=== PATIENT | female | born 1960 | race Caucasian/White ===

== ENCOUNTER 2019-09-22 10:12 | Outpatient (CLI) | payer OTHER, SELFPAY ==
[2019-09-22 10:23] LABS: Basophils Absolute Auto 0.06 K/mm3 (0.00-0.10); Basophils Percent Auto 1.1 % (0.0-1.0); Eosinophils Absolute Auto 0.33 K/mm3 (0.02-0.50); Eosinophils Percent Auto 6.1 % (1.0-6.0); Hematocrit 39.5 % (35.0-49.0); Hemoglobin 13.3 g/dL (12.0-15.0); Immature Granulocyte Absolute 0.01 K/mm3 (0.00-0.00); Immature Granulocyte Percent A 0.2 % (0.0-0.0); Lymphocytes Absolute Auto 1.69 K/mm3 (1.10-4.50); Lymphocytes Percent Auto 31.2 % (18.0-42.0); Mean Corpuscular HGB Conc 33.7 g/dL (32.0-36.0); Mean Platelet Volume 9.6 fl (9.2-11.8); Monocytes Absolute Auto 0.46 K/mm3 (0.10-0.90); Monocytes Percent Auto 8.5 % (2.0-11.0); Neutrophils Absolute Auto 2.9 K/mm3 (1.7-7.2); Neutrophils Percent Auto 52.9 % (50.0-70.0); Platelet Count Result 257 K/mm3 (150-420); Red Blood Count 4.44 M/mm3 (4.20-5.40); Red Cell Distribution Width 13.1 % (11.6-14.4); White Blood Count 5.4 K/mm3 (4.8-10.8)
[2019-09-22 11:21] LABS: Alanine Aminotransferase 22 U/L (14-59); Albumin Level 4.5 g/dL (3.4-5.0); Alkaline Phosphatase 57 U/L (46-116); Anion Gap 16.5 mmol/L (7-16); Aspartate Amino Transferase 17 U/L (15-37); Bilirubin,Total 0.4 mg/dL (0.00-1.00); Blood Urea Nitrogen 19 mg/dL (7-18); Calcium 9.1 mg/dL (8.5-10.1); Carbon Dioxide 26 mmol/L (21-32); Chloride 106 mmol/L (98-108); Cholesterol 245 mg/dL (0-200); Estimated Glomerular Filt Rate > 60; Glucose 96 mg/dL (70-99); HDL Direct 51 mg/dL (40-60); LDL Cholesterol Calculated 169 mg/dL (<130); Osmolality Calculated 300 mOsm/kg (285-295); Potassium 4.5 mmol/L (3.5-5.1); Sodium 144 mmol/L (136-145); Thyroid Stimulating Hormone Reflex 5.16 u/IU/mL (0.36-3.74); Total Protein 7.4 g/dL (6.4-8.2); Triglycerides 126 mg/dL (0-150)
[2019-09-22 11:39] LABS: Free T4 Free Thyroxine Reflex 0.76 ng/dL (0.76-1.46)
== END 2019-09-22 10:13 | disposition home or self-care (01) ==
LOC: CHSLAB 10:15
PROVIDERS: PCP Family Medicine; Visit Provider Family Medicine
DX: E03.9 Hypothyroidism, unspecified (principal); E78.5 Hyperlipidemia, unspecified
CPT/HCPCS: 36415; 80053; 80061; 84439; 84443; 85025

== ENCOUNTER 2020-02-09 10:18 | Outpatient (CLI) | payer OTHER, SELFPAY ==
[2020-02-09 11:48] LABS: Thyroid Stimulating Hormone Reflex 2.95 u/IU/mL (0.36-3.74)
[2020-02-11 11:18] LABS: Cholesterol 192 mg/dL (0-200); HDL Direct 53 mg/dL (40-60); LDL Cholesterol Calculated 123 mg/dL (<130); Triglycerides 79 mg/dL (0-150)
[2020-02-15 04:12] LABS: Hepatitis C Virus Antibody Nonreactive (Nonreactive)
== END 2020-02-09 10:19 | disposition home or self-care (01) ==
LOC: CHSLAB 10:23
PROVIDERS: PCP Family Medicine; Visit Provider Family Medicine
DX: E03.9 Hypothyroidism, unspecified (principal)
CPT/HCPCS: 36415; 80061; 84443

== ENCOUNTER 2020-05-05 15:11 | Outpatient (CLI) | payer OTHER, SELFPAY ==
--- NOTE | ~2020-05-05 | XR_ITS ---
EXAMINATION: XR chest 2V EXAM DATE: 05/05/2020 15:34 INDICATION: Short of breath on exertion. TECHNIQUE: Frontal and lateral projections of the chest obtained and reviewed. Comparison is made to prior examination from 06/27/2018. FINDINGS: There is right lower lobe granuloma. The lungs are otherwise clear. There are no pleural e ffusions. The cardiomediastinal silhouette is within normal limits. There is no pneumothorax suspec jamia. The bones and soft tissues are unremarkable. IMPRESSION: No acute cardiopulmonary findings. Reviewed, dictated and finalized at location A.
[2020-05-05 15:21] LABS: Hematocrit 39.1 % (35.0-49.0); Hemoglobin 12.9 g/dL (12.0-15.0); Mean Corpuscular Hemoglobin 30.3 pg (27.0-31.0); Mean Corpuscular Volume 91.8 fL (78.0-102.0); Mean Platelet Volume 9.7 fl (9.2-11.8); Platelet Count Result 281 K/mm3 (150-420); Red Blood Count 4.26 M/mm3 (4.20-5.40); Red Cell Distribution Width 12.8 % (11.6-14.4); White Blood Count 6.6 K/mm3 (4.8-10.8)
[2020-05-05 16:02] LABS: Alanine Aminotransferase 28 U/L (14-59); Albumin Level 4.5 g/dL (3.4-5.0); Alkaline Phosphatase 75 U/L (46-116); Anion Gap 9 mmol/L (8-16); Aspartate Amino Transferase 19 U/L (15-37); Bilirubin,Total 0.5 mg/dL (0.00-1.00); Blood Urea Nitrogen 19 mg/dL (7-18); Calcium 9.2 mg/dL (8.5-10.1); Carbon Dioxide 26 mmol/L (21-32); Chloride 106 mmol/L (98-108); Estimated Glomerular Filt Rate > 60; Glucose 91 mg/dL (70-99); Osmolality Calculated 294 mOsm/kg (285-295); Potassium 4.1 mmol/L (3.5-5.1); Sodium 141 mmol/L (136-145); Total Protein 7.3 g/dL (6.4-8.2)
== END 2020-05-05 15:12 | disposition home or self-care (01) ==
LOC: CHSLAB 15:14
PROVIDERS: PCP Family Medicine; Visit Provider Family Medicine
DX: R68.89 Other general symptoms and signs (principal)
CPT/HCPCS: 36415; 71046; 80053; 85027

== ENCOUNTER 2020-05-07 20:31 | Emergency (ER) | payer OTHER, SELFPAY ==
[2020-05-07 20:35] VITALS: BP 141/81; PULSE 61; RESP 17; TEMP 37; O2SAT 99
[2020-05-07 20:40] VITALS: PULSE 62
--- NOTE | 2020-05-07 21:02 | ECG_ITS ---
Measurements Intervals [place] Rate: 54 P: 18 DC: 189 QRS: 0 QRSD: 103 T: 33 QT: 419 QTc: 399 Interpretive Statements SINUS BRADYCARDIA BORDERLINE ECG Electronically Signed On 05-08-2020 7:07:58 CDT by Angel Riojas D.O.
--- NOTE | 2020-05-07 21:02 | ED.GENADULT ---
HPI - General Adult General Chief complaint: Shortness of Breath/Dyspnea Stated complaint: SOB Source: patient Mode of arrival: ambulatory Limitations: no limitations History of Present Illness HPI narrative: Tonie is a 60F with a PMH of hypothyroidism, HTN, HLD and some exercise intolerance presented to the ER with concerns of her heart pounding, and SOB with activity. She intermittently feels like her heart is pounding, she is anxious and she cannot control it. 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 She also reports some lightheadedness. No chest pain, N/V or syncope. Of note she was recently seen in clinic for this and she went to [facility] emergency department last night. She had an EKG that was normal but was not able to stay long enough to be seen by a physician. Related Data Home Medications Medication Instructions Recorded Confirmed aspirin 81 mg tablet,delayed 81 mg PO DAILY 09/06/19 05/07/20 release Allergies Allergy/AdvReac Type Severity Reaction Status Date / Time Sulfa (Sulfonamide Allergy Rash Verified 05/07/20 20:53 Antibiotics) Review of Systems Constitutional: Constitutional: Denies chills, Denies fever(s) and Denies weakness Eyes: Eyes: Reports no additional eye complaints ENT: Reports system reviewed and no additional complaints, except as documented Cardiovascular: Cardiovascular: Reports as per HPI Respiratory: Respiratory: Reports as per HPI Gastrointestinal: Comments: belching Genitourinary: Genitourinary: Reports no additional female genitourinary complaints Musculoskeletal: Musculoskeletal: Reports no additional musculoskeletal complaints Integumentary/Breasts: Skin/Breast: Reports system reviewed and no additional complaints, except as docu Neurologic: Reports system reviewed and no additional complaints, except as documented Psychiatric: Psychiatric: Reports anxiety Endocrine: Endocrine: Reports no additional endocrine complaints Hematologic/Lymphatic: Hematologic/Lymphatic: Reports no additional hematologic/lymphatic complaints Allergic/Immunologic: Allergic/Immunologic: Reports no additional allergic/immunologic complaints [facility] Past Medical History Medical History Exercise intolerance Hyperlipidemia Hypertension Hypothyroidism Surgical History Surgical History H/O exploratory laparotomy H/O lithotripsy Hx of cardiac cath Social History Social History Smoking status: Never smoker Alcohol intake: never Substance use: never Substance use type: does not use Additional occupation/education comments: RN at [employer] Exam Const: General: no acute distress and alert Orientation/consciousness: patient oriented x3 Limitations: No altered mental status HENMT: Head: normal to inspection Eyes: Conjunctivae: conjunctivae normal Pupils: Equal, round and reactive pupils present Neck: Neck: normal visual inspection Chest: Chest palpation & inspection: normal inspection of the chest Resp: Effort & Inspection: normal respiratory effort, not labored, not tachypneic and no use of accessory muscles Auscultation: clear to auscultation bilaterally Cardio: Rate: regular rate Rhythm: regular rhythm Heart sounds: no murmurs GI: GI Palp: Yes Soft to palpation, No Tenderness to palpation present (GI) and No Guarding due to palpation present (GI) Skin: General skin exam: normal color Rashes: no rashes Neuro: General: patient oriented x3 and moves all extremities Extrem: General: normal to inspection Psych: Mental Status: mental status grossly normal Course Course Emergency Course: Tonie was evaluated. An EKG was ordered as well as a dose of ativan. Of note she was seen in clinic on 05/05 and had a normal CXR,
[2020-05-07] MEDS: LORazepam INJ (*CRX) 2 MG/ML VIAL 1 MG IM (21:07)
[2020-05-07 22:05] VITALS: BP 146/79; PULSE 61; RESP 14; O2SAT 100
== END 2020-05-07 22:10 | disposition home or self-care (01) ==
PROVIDERS: Emergency Provider Family Medicine; PCP Family Medicine
DX: F41.9 Anxiety disorder, unspecified (principal)
CPT/HCPCS: 93005; 96372; 99283; J2060

== ENCOUNTER 2020-08-16 11:38 | Outpatient (CLI) | payer OTHER, SELFPAY ==
[2020-08-16 12:41] LABS: Free T4 Free Thyroxine 0.91 ng/dL (0.76-1.46); Thyroid Stimulating Hormone 3.46 uIU/mL (0.36-3.74)
== END 2020-08-16 11:39 | disposition home or self-care (01) ==
LOC: CHSLAB 11:40
PROVIDERS: PCP Family Medicine; Visit Provider Family Medicine
DX: E03.9 Hypothyroidism, unspecified (principal)
CPT/HCPCS: 36415; 84439; 84443

== ENCOUNTER → 2020-08-26 09:15 | Outpatient (CLI) | payer OTHER, SELFPAY ==
--- NOTE | ~2020-08-26 | US_ITS ---
EXAMINATION: US transvaginal EXAM DATE: 08/26/2020 09:44 INDICATION: hx of complex hyperplasia, check endometrial stripe. TECHNIQUE: Pelvic transvaginal sonogram was performed. There are multiple grayscale and Doppler imag es available for interpretation. There is no prior study for comparison. FINDINGS: Uterus measures 4.3 x 2.1 x 2.8 cm, and is morphologically normal. Endometrial stripe claire sures 5 mm, within normal limits. There is no free pelvic fluid. Right adnexa: The ovary is not identified. There is no adnexal mass. Left adnexa: The ovary is not identified. There is no adnexal mass. IMPRESSION: 1. Unremarkable pelvic ultrasound exam. Reviewed, dictated and finalized at location B. GRAY CLOTH WASHER
== END ==
PROVIDERS: PCP Family Medicine; Visit Provider Nurse Practitioner
DX: N85.01 Benign endometrial hyperplasia (principal)
CPT/HCPCS: 76830

== ENCOUNTER 2021-02-10 07:25 | Outpatient (CLI) | payer OTHER, SELFPAY ==
[2021-02-10 08:41] LABS: SARS-CoV-2 RNA PCR Negative (Negative)
== END 2021-02-10 07:26 | disposition home or self-care (01) ==
LOC: CHSLAB 07:28
PROVIDERS: PCP Family Medicine; Visit Provider Family Medicine
DX: Z20.822 Contact with and (suspected) exposure to COVID-19 (principal)
CPT/HCPCS: C9803; U0003; U0005

== ENCOUNTER 2021-04-29 11:06 | Outpatient (CLI) | payer OTHER, SELFPAY ==
[2021-04-29 12:35] LABS: Thyroid Stimulating Hormone 2.55 uIU/mL (0.36-3.74)
== END 2021-04-29 11:07 | disposition home or self-care (01) ==
LOC: CHSLAB 11:09
PROVIDERS: PCP Family Medicine; Visit Provider Nurse Practitioner Family
DX: E03.9 Hypothyroidism, unspecified (principal)
CPT/HCPCS: 36415; 84443

== ENCOUNTER 2021-09-05 11:52 | Outpatient (CLI) | payer OTHER, SELFPAY ==
[2021-09-05 12:14] LABS: Basophils Absolute Auto 0.09 K/mm3 (0.00-0.10); Basophils Percent Auto 1.5 % (0.0-1.0); Eosinophils Absolute Auto 0.48 K/mm3 (0.02-0.50); Eosinophils Percent Auto 8.2 % (1.0-6.0); Hemoglobin 12.6 g/dL (12.0-15.0); Immature Granulocyte Absolute 0.01 K/mm3 (0.00-0.00); Immature Granulocyte Percent A 0.2 % (0.0-0.0); Lymphocytes Percent Auto 34.1 % (18.0-42.0); Mean Corpuscular HGB Conc 33.2 g/dL (32.0-36.0); Mean Corpuscular Hemoglobin 29.6 pg (27.0-31.0); Mean Corpuscular Volume 89.4 fL (78.0-102.0); Mean Platelet Volume 9.9 fl (9.2-11.8); Monocytes Absolute Auto 0.52 K/mm3 (0.10-0.90); Monocytes Percent Auto 8.9 % (2.0-11.0); Neutrophils Absolute Auto 2.8 K/mm3 (1.7-7.2); Neutrophils Percent Auto 47.1 % (50.0-70.0); Platelet Count Result 319 K/mm3 (150-420); Red Blood Count 4.25 M/mm3 (4.20-5.40); Red Cell Distribution Width 12.4 % (11.6-14.4); White Blood Count 5.9 K/mm3 (4.8-10.8)
[2021-09-05 12:47] LABS: Alanine Aminotransferase 27 U/L (14-59); Albumin Level 4.3 g/dL (3.4-5.0); Alkaline Phosphatase 68 U/L (46-116); Anion Gap 11 mmol/L (8-16); Aspartate Amino Transferase 17 U/L (15-37); Bilirubin,Total 0.4 mg/dL (0.00-1.00); Blood Urea Nitrogen 15 mg/dL (7-18); Calcium 9.3 mg/dL (8.5-10.1); Carbon Dioxide 25 mmol/L (21-32); Chloride 105 mmol/L (98-108); Cholesterol 226 mg/dL (0-200); Estimated Glomerular Filt Rate > 60; Glucose 102 mg/dL (70-99); HDL Direct 45 mg/dL (40-60); LDL Cholesterol Calculated 161 mg/dL (<130); Osmolality Calculated 292 mOsm/kg (285-295); Potassium 4.7 mmol/L (3.5-5.1); Sodium 141 mmol/L (136-145); Total Protein 7.1 g/dL (6.4-8.2); Triglycerides 98 mg/dL (0-150)
[2021-09-07 12:56] LABS: Hemoglobin A1C 5.3 % (<5.7)
== END 2021-09-05 11:53 | disposition home or self-care (01) ==
LOC: CHSLAB 11:55
PROVIDERS: PCP Family Medicine; Visit Provider Nurse Practitioner Family
DX: E78.5 Hyperlipidemia, unspecified (principal); I10 Essential (primary) hypertension; R73.09 Other abnormal glucose
CPT/HCPCS: 36415; 80053; 80061; 83036; 85025

== ENCOUNTER → 2021-09-12 08:27 | Outpatient (CLI) | payer OTHER, SELFPAY ==
--- NOTE | ~2021-09-12 | US_ITS ---
EXAMINATION: US transvaginal DATE: 09/12/2021 08:50 INDICATION: Thickened endometrium. Comparison:Ultrasound dated 08/26/2020 TECHNIQUE: Multiple endovaginal sonographic images of the pelvis performed. FINDINGS: The uterus measures 8.7 x 2 x 3.1 cm. The endometrial complex measures 3 mm. The ovaries are not visualized. There is no free fluid in the pelvis. There are no abnormal masses seen on either side. IMPRESSION: 1. Unremarkable pelvic ultrasound. Reviewed, dictated and finalized at location A. HANGER
== END ==
PROVIDERS: Visit Provider Nurse Practitioner
DX: R93.5 Abnormal findings on diagnostic imaging of other abdominal regions, including retroperitoneum (principal)
CPT/HCPCS: 76830

== ENCOUNTER 2021-12-29 14:25 | Outpatient (CLI) | payer BC, SELFPAY ==
[2021-12-29 16:55] LABS: Free T4 Free Thyroxine 1.07 ng/mL (0.78-2.19)
[2022-01-02 02:51] LABS: Thyroid Peroxidase Antibodies 483 IU/mL (<9)
== END 2021-12-29 14:26 | disposition home or self-care (01) ==
LOC: ANHWCLAB 14:28
PROVIDERS: PCP Family Medicine; Visit Provider Internal Medicine Endocrinology, Diabetes & Metabolism
DX: E03.9 Hypothyroidism, unspecified (principal)
CPT/HCPCS: 36415; 84439; 84443; 86376

== ENCOUNTER → 2022-01-07 16:15 | Outpatient (CLI) | payer BC, SELFPAY ==
--- NOTE | ~2022-01-07 | MM_ITS ---
EXAMINATION: MM screening clau BI w stacey HISTORY: Screening mammogram TECHNIQUE: Craniocaudal and mediolateral oblique 3-D tomosynthesis images were obtained and synthetic 2-D images were generated. CAD analysis was submitted and interpreted. COMPARISON: No prior mammogram is available for comparison at this institution. BREAST PARENCHYMAL COMPOSITION: There are scattered areas of fibroglandular density. FINDINGS: Benign-appearing circumscribed lymph nodes in the outer mid breast. There is no evidence of suspicious mass, calcification, or architectural distortion to suggest malignancy in either breast. There has been no suspicious interval change. IMPRESSION: 1. No mammographic evidence of malignancy. 2. Recommend routine screening mammography in one year. BI-RADS Category 2: Benign finding(s). Reviewed, dictated and finalized at location A.
== END ==
PROVIDERS: PCP Family Medicine; Visit Provider Nurse Practitioner
DX: Z12.31 Encounter for screening mammogram for malignant neoplasm of breast (principal)
CPT/HCPCS: 77063; 77067

== ENCOUNTER 2022-05-17 16:54 | Outpatient (CLI) | payer BC, SELFPAY ==
[2022-05-17 17:30] LABS: Free T4 Free Thyroxine 0.81 ng/dL (0.76-1.46); Thyroid Stimulating Hormone 4.48 uIU/mL (0.36-3.74)
== END 2022-05-17 16:55 | disposition home or self-care (01) ==
LOC: CHSLAB 16:56
PROVIDERS: PCP Family Medicine; Visit Provider Internal Medicine Endocrinology, Diabetes & Metabolism
DX: E03.9 Hypothyroidism, unspecified (principal)
CPT/HCPCS: 36415; 84439; 84443

== ENCOUNTER 2022-11-11 09:16 | Outpatient (CLI) | payer OTHER, SELFPAY ==
[2022-11-11 10:11] LABS: Free T4 Free Thyroxine 0.87 ng/dL (0.76-1.46); Thyroid Stimulating Hormone 2.48 uIU/mL (0.36-3.74)
== END 2022-11-11 09:17 | disposition home or self-care (01) ==
LOC: CHSLAB 09:22
PROVIDERS: PCP Family Medicine; Visit Provider Internal Medicine Endocrinology, Diabetes & Metabolism
DX: E03.9 Hypothyroidism, unspecified (principal)
CPT/HCPCS: 36415; 84439; 84443

== ENCOUNTER 2023-01-18 07:32 | Outpatient (CLI) | payer OTHER, SELFPAY ==
--- NOTE | ~2023-01-18 | MM_ITS ---
EXAMINATION: MM screening clau BI w stacey HISTORY: Screening mammogram TECHNIQUE: Craniocaudal and mediolateral oblique 3-D tomosynthesis images were obtained and synthetic 2-D images were generated. CAD analysis was submitted and interpreted. COMPARISON: 01/07/2022 bilateral screening mammogram BREAST PARENCHYMAL COMPOSITION: There are scattered areas of fibroglandular density. FINDINGS: Stable benign intramammary lymph node in the posterior mid to upper aspect of each breast. There is no evidence of suspicious mass, calcification, or architectural distortion to suggest malign vanessa in either breast. There has been no suspicious interval change. IMPRESSION: 1. No mammographic evidence of malignancy. 2. Recommend routine screening mammography in one year. BI-RADS Category 2: Benign finding(s). Reviewed, dictated and finalized at location A.
== END 2023-01-18 07:33 | disposition home or self-care (01) ==
LOC: CHSIMG 07:34
PROVIDERS: PCP Family Medicine; Visit Provider Nurse Practitioner
DX: Z12.31 Encounter for screening mammogram for malignant neoplasm of breast (principal)
CPT/HCPCS: 77063; 77067

== ENCOUNTER 2023-02-08 10:07 | Outpatient (CLI) | payer OTHER, SELFPAY ==
--- NOTE | 2023-02-08 10:28 | ECG_ITS ---
Measurements Intervals [place] Rate: 45 P: 12 NV: 190 QRS: 0 QRSD: 102 T: 41 QT: 421 QTc: 367 Interpretive Statements SINUS BRADYCARDIA DELAYED PRECORDIAL R/S TRANSITION ABNORMAL ECG COMPARED TO ECG 05/07/2020 21:12:40 HEART RATE HAS DECREASED Electronically Signed On 02-08-2023 11:02:27 CDT by Angel Riojas D.O.
[2023-02-08 10:31] LABS: Hematocrit 38.6 % (35.0-49.0); Hemoglobin 12.4 g/dL (12.0-15.0); Mean Corpuscular HGB Conc 32.1 g/dL (32.0-36.0); Mean Corpuscular Hemoglobin 29.6 pg (27.0-31.0); Mean Corpuscular Volume 92.1 fL (78.0-102.0); Mean Platelet Volume 9.8 fl (9.2-11.8); Platelet Count Result 280 K/mm3 (150-420); Red Blood Count 4.19 M/mm3 (4.20-5.40); Red Cell Distribution Width 12.7 % (11.6-14.4)
[2023-02-08 11:11] LABS: Alanine Aminotransferase 30 U/L (14-59); Albumin Level 4.1 g/dL (3.4-5.0); Alkaline Phosphatase 71 U/L (46-116); Anion Gap 9 mmol/L (8-16); Aspartate Amino Transferase 20 U/L (15-37); Bilirubin,Total 0.4 mg/dL (0.00-1.00); Blood Urea Nitrogen 13 mg/dL (7-18); Calcium 9.2 mg/dL (8.5-10.1); Carbon Dioxide 27 mmol/L (21-32); Chloride 108 mmol/L (98-108); Cholesterol 191 mg/dL (0-200); Estimated Glomerular Filt Rate > 60; Glucose 96 mg/dL (70-99); HDL Direct 47 mg/dL (40-60); LDL Cholesterol Calculated 121 mg/dL (<130); Osmolality Calculated 298 mOsm/kg (285-295); Potassium 4.6 mmol/L (3.5-5.1); Sodium 144 mmol/L (136-145); Total Protein 7.1 g/dL (6.4-8.2); Triglycerides 114 mg/dL (0-150)
[2023-02-08 11:15] LABS: Free T4 Free Thyroxine 0.86 ng/dL (0.76-1.46); Thyroid Stimulating Hormone 3.74 uIU/mL (0.36-3.74)
== END 2023-02-08 10:08 | disposition home or self-care (01) ==
PROVIDERS: Nurse Practitioner Family; PCP Family Medicine; Visit Provider Internal Medicine Endocrinology, Diabetes & Metabolism
DX: E78.5 Hyperlipidemia, unspecified (principal); I10 Essential (primary) hypertension; R00.2 Palpitations; E03.9 Hypothyroidism, unspecified; R94.31 Abnormal electrocardiogram [ECG] [EKG]
CPT/HCPCS: 36415; 80053; 80061; 84439; 84443; 85027; 93005

== ENCOUNTER → 2023-04-13 12:22 | Outpatient (CLI) | payer OTHER, SELFPAY ==
--- NOTE | ~2023-04-13 | DEXA_ITS ---
Bone Density Report Name: NICKY HERNANDEZ Age: 63 Sex: Female Ethnicity: White Date of : 1960 Indication: postmenopausal; screening for osteoporosis; parental hip fracture; Referring Provider: MICHAEL, KETAN Study: Bone densitometry was performed. Exam Date: April 13, 2023 Accession number: [id number] Bone Density: Region BMD T-score Z-score Classification AP Spine (L1-L4) 0.948 -0.9 0.7 Normal Femoral Neck (Left) 0.649 -1.8 -0.4 Osteopenia Total Hip (Left) 0.862 -0.7 0.4 Normal Femoral Neck (Right) 0.633 -1.9 -0.6 Osteopenia Total Hip (Right) 0.763 -1.5 -0.4 Osteopenia Total Hip Mean 0.813 -1.1 0.0 Osteopenia World Health Organization criteria for BMD impression classify patients as: Normal (T-score at or above -1.0), Osteopenia (T-score between -1.0 and -2.5), or Osteoporosis (T-score at or below -2.5). 10-year Fracture Risk(1): Major Osteoporotic Fracture 18% Hip Fracture 1.3% Reported Risk Factors: [place] (), Neck BMD=0.633, BMI=28.4, parental fracture (1) FRAX(R) Version 3.08. Fracture probability calculated for an untreated patient. Fracture probability may be lower if the patient has received treatment. Clinical Information Provided by Patient: Parent has had a hip fracture Patient maximum height was 67.5 Menopause Age: 54 No regular weight bearing exercise Does not regularly consume dairy products Drinks caffeinated beverages Onset of menses at age 16 Number of children 1 Impression: The patient has low bone mass, based on the Right Femoral Neck T-score. The patient has an estimated ten-year risk of hip fracture of 1.3% and an estimated ten-year risk of major fracture of 18%, based on the WHO FRAX algorithm. The patient has risk factors, including: parental hip fracture. Discussion: BONE DENSITY IS LOW AT ONE OR MORE SKELETAL SITES. This patient's lowest T-score is low at one or more skeletal sites. It meets the World Health Organization's (WHO) criteria for ?low bone mass? (T-score between -1.0 and -2.5). The patient's 10-year risk of fracture as calculated by FRAX is less than the threshold where pharmacological therapy is recommended by the National Osteoporosis Foundation (NOF). However, all treatment decisions require clinical judgment and consideration of individual patient factors, including patient preferences, comorbidities, previous drug use, risk factors not captured in the FRAX model (e.g., frailty, falls, vitamin D deficiency, increased bone turnover, interval significant decline in bone density) and possible under or overestimation of fracture risk by FRAX. The patient should follow a healthful lifestyle (good nutrition with adequate calcium and vitamin D, and appropriate weight-bearing exercise). Follow-Up: Consider repeating this study
== END ==
PROVIDERS: PCP Family Medicine; Visit Provider Nurse Practitioner
DX: Z78.0 Asymptomatic menopausal state (principal); M85.852 Other specified disorders of bone density and structure, left thigh; M85.851 Other specified disorders of bone density and structure, right thigh
CPT/HCPCS: 77080

== ENCOUNTER 2023-09-08 16:12 | Outpatient (NON) | payer OTHER, SELFPAY | END 2023-09-08 16:13 | disposition home or self-care (01) | LOC: CHSLAB 16:13 | PROVIDERS: Visit Provider Nurse Practitioner Family | DX: R35.0 Frequency of micturition (principal) | CPT/HCPCS: 87086; 87088 ==

== ENCOUNTER 2023-09-16 10:33 | Outpatient (CLI) | payer OTHER, SELFPAY ==
--- NOTE | ~2023-09-16 | XR_ITS ---
EXAMINATION: XR abdomen/kub 1V INDICATION: Bladder pressure, history of kidney stones TECHNIQUE: Supine views of the abdomen were obtained on 2 radiographs. COMPARISON: None FINDINGS: A 3 mm calcification projecting over the right kidney likely reflects a stone. Punctate pel medhat calcifications have the appearance of phleboliths. No definite stones are identified in the urete rs or bladder. There is a calcified granuloma of the right lower lung base. The visualized lung bases are otherwise clear. There is mild osteoarthritis of the hips. IMPRESSION: 1. Probable right nephrolithiasis. Reviewed, dictated and finalized at location B. INE DEBURRER
== END 2023-09-16 10:34 | disposition home or self-care (01) ==
LOC: CHSIMG 10:35
PROVIDERS: PCP Nurse Practitioner Family; Visit Provider Nurse Practitioner Family
DX: R39.89 Other symptoms and signs involving the genitourinary system (principal)
CPT/HCPCS: 74018

== ENCOUNTER 2024-01-23 08:29 | Outpatient (CLI) | payer OTHER, SELFPAY ==
--- NOTE | ~2024-01-23 | MM_ITS ---
EXAMINATION: MM screening clau BI w stacey HISTORY: Screening mammogram TECHNIQUE: Craniocaudal and mediolateral oblique 3-D tomosynthesis images were obtained and synthetic 2-D images were generated. CAD analysis was submitted and interpreted. COMPARISON: 01/18/2023, 01/07/2022 BREAST PARENCHYMAL COMPOSITION:Not Dense. There are scattered areas of fibroglandular density. FINDINGS: No suspicious mass, calcification, or architectural distortion are identified in either juan david ast to suggest malignancy. There has been no suspicious interval change. IMPRESSION: No mammographic evidence of malignancy. Recommend routine screening mammography in one year. BI-RADS Category 1: Negative Reviewed, dictated and finalized at location .
== END 2024-01-23 08:30 | disposition home or self-care (01) ==
LOC: CHSIMG 08:31
PROVIDERS: PCP Family Medicine; Visit Provider Nurse Practitioner
DX: Z12.31 Encounter for screening mammogram for malignant neoplasm of breast (principal)
CPT/HCPCS: 77063; 77067

== ENCOUNTER 2024-05-14 12:00 | Outpatient (CLI) | payer OTHER, SELFPAY ==
[2024-05-14 13:36] LABS: Albumin Level 3.7 g/dL (3.4-5.0); Anion Gap 7 mmol/L (4-12); Blood Urea Nitrogen 13 mg/dL (7-18); Calcium 9.2 mg/dL (8.5-10.1); Carbon Dioxide 29 mmol/L (21-32); Chloride 105 mmol/L (98-108); Estimated Glomerular Filt Rate > 60; Free T4 Free Thyroxine 0.82 ng/dL (0.76-1.46); Glucose 91 mg/dL (70-99); Osmolality Calculated 292 mOsm/kg (285-295); Phosphorus 4.1 mg/dL (2.6-4.7); Sodium 141 mmol/L (136-145); Thyroid Stimulating Hormone 1.59 uIU/mL (0.36-3.74)
[2024-05-15 14:53] LABS: Parathyroid Intact 41 pg/mL (16-77)
[2024-05-16 06:43] LABS: Vitamin D 25 Hydroxy 32 ng/mL (30-100)
== END 2024-05-14 12:01 | disposition home or self-care (01) ==
LOC: CHSLAB 12:01
PROVIDERS: PCP Family Medicine; Visit Provider Internal Medicine Endocrinology, Diabetes & Metabolism
DX: E03.9 Hypothyroidism, unspecified (principal); M85.80 Other specified disorders of bone density and structure, unspecified site; R79.89 Other specified abnormal findings of blood chemistry; Z78.0 Asymptomatic menopausal state
CPT/HCPCS: 36415; 80069; 82306; 83970; 84439; 84443

== ENCOUNTER 2024-10-12 10:23 | Outpatient (CLI) | payer OTHER, SELFPAY ==
[2024-10-12 11:29] LABS: Cholesterol 204 mg/dL (0-200); HDL Direct 58 mg/dL (40-60); LDL Cholesterol Calculated 120 mg/dL (<130); Triglycerides 130 mg/dL (0-150)
--- OUTSIDE RECORDS SUMMARY | 2024-10-12 11:33 | XMS_ITS | Clinical Summary ---
Author Organization [facility] Address [address] [place] [address] Care Team Providers Care Court Operations Clerk Name Role Phone Unavailable Primary Care Provider Unavailabl e Social History Tobacco Use Types Packs/Day Years Used Date Smoking Tobacco: Never Comments Unknown Sex and Gender Information Value Date Recorded Sex Assigned at Not on file Legal Sex Female 2:42 AM CDT Gender Identity Not on file Sexual Orientation Not on file Last Filed Vital Signs Vital Sign Reading Time Taken Comments Blood Pressure 112/72 05/28/2015 10:32 AM MARBLE MASON Pulse 59 05/28/2015 10:31 AM MARBLE MASON Temperature - - Respiratory Rate 16 05/28/2015 10:31 AM MARBLE MASON Regular Oxygen Saturation - - Inhaled Oxygen Concentration - - Weight 87.5 kg (193 lb) 05/28/2015 10:31 AM MARBLE MASON Height 167.6 cm (5' 6 ) 05/28/2015 10:31 AM MARBLE MASON Body Mass Index 31.15 05/28/2015 10:31 AM MARBLE MASON Plan of Treatment Health Maintenance Due Date Last Done Comments Cervical Cancer Screening Pa p Smear (Age 30 to 64) Every 3 Years 1960 Colorectal Cancer Screening Colonoscopy (10 Years) 1960 Annual Physical 02/29/1964 Hepatitis C 1979 DTaP, Tdap and Td Vaccines ( 1 - Tdap) 02/29/1980 Cervical Cancer Screening Pa p with HPV Testing (Age 30 to 64) Every 5 Years 1991 Cervical Cancer Screening with HPV 1991 Mammogram Screening 2001 Zoster Vaccines (1 of 2) 2011 COVID-19 Vaccine (2023-2 5 season) 2024 Influenza Adult (#1) 2024 RSV Immunization or 60+ Years (1 - 1-dose 75+ series) 02/29/2036 Meningococcal B Vaccine Aged Out No l onger eligible based on patient's age to complete this topic Meningococcal Vaccine Aged Out No rg rell eligible based on patient's age to complete this topic Pneumococcal Vaccine: Pediat rics (0 to 5 Years) and At-Risk Patients (6 to 64 Years) Aged Out No longer eligible b ased on patient's age to complete this topic RSV Immunizations Under 20 Months Aged Out No longer eligible based on patient's age to complete this topic
== END 2024-10-12 10:24 | disposition home or self-care (01) ==
LOC: CHSLAB 10:24
PROVIDERS: PCP Family Medicine; Visit Provider Nurse Practitioner Family
DX: Z00.00 Encounter for general adult medical examination without abnormal findings (principal)
CPT/HCPCS: 36415; 80061

== ENCOUNTER 2025-01-28 08:34 | Outpatient (CLI) | payer OTHER, SELFPAY ==
--- NOTE | ~2025-01-28 | MM_ITS ---
EXAMINATION: MM screening clau BI w stacey HISTORY: Screening TECHNIQUE: Craniocaudal and mediolateral oblique 3-D tomosynthesis images were obtained and synthetic 2-D images were generated. CAD analysis was submitted and interpreted. COMPARISON: Comparison to multiple prior studies sequentially, with oldest reviewed study dated 01/07. BREAST PARENCHYMAL COMPOSITION: Not dense: There are scattered areas of fibroglandular density. FINDINGS: There is no evidence of suspicious mass, calcification, or architectural distortion to sugg est malignancy in either breast. There has been no suspicious interval change. IMPRESSION: 1. No mammographic evidence of malignancy. 2. Recommend routine screening mammography in one year. BI-RADS Category 1: Negative Reviewed, dictated and finalized at location A.
== END 2025-01-28 08:35 | disposition home or self-care (01) ==
LOC: CHSIMG 08:35
PROVIDERS: PCP Family Medicine; Visit Provider Nurse Practitioner
DX: Z12.31 Encounter for screening mammogram for malignant neoplasm of breast (principal)
CPT/HCPCS: 77063; 77067

== ENCOUNTER 2025-05-30 12:02 | Outpatient (CLI) | payer OTHER, SELFPAY ==
[2025-05-30 14:46] LABS: Thyroid Stimulating Hormone 1.560 uIU/mL (0.465-4.680)
--- OUTSIDE RECORDS SUMMARY | 2025-05-30 19:25 | XMS_ITS | Clinical Summary ---
Author Organization [facility] Address [address] [place] [address] Care Team Providers Care Quantitative Associate Name Role Phone Unavailable Primary Care Provider [...] Comments Blood Pressure 112/72 05/28/2015 10:32 AM MILL FEEDER Pulse 59 05/28/2015 10:31 AM MILL FEEDER Temperature - - Respiratory Rate 16 05/28/2015 10:31 AM MILL FEEDER Regular Oxygen Saturation - - Inhaled Oxygen Concentration - - Weight 87.5 kg (193 lb) 05/28/2015 10:31 AM MILL FEEDER Height 167.6 cm (5' 6) 05/28/2015 10:31 AM MILL FEEDER Body Mass Index 31.15 05/28/2015 10:31 AM MILL FEEDER Plan of Treatment Health Maintenance Due Date [...] Screening with HPV 1991 Mammogram Screening 2001 Pneumococcal Vaccine: 50+ Ye ars (1 of 1 - PCV) 2011 Zoster Vaccines (1 of 2) 2011 COVID-19 Vaccine (2024-2 6 season) 2025 Influenza Adult (#1) 2025 RSV Immunization or 60+ Years (1 - 1-dose 75+ series) 02/29/2036 Hepatitis A Vaccines Aged Out No long er eligible based on patient's age to complete this topic Meningococcal B Vaccine Aged Out No l onger eligible based on patient's age to complete this topic Meningococcal Vaccine Aged Out No rg rell eligible based on patient's age to complete this topic RSV Immunizations Under 20 Months Aged Out No longer eligible based on patient's age to complete this topic
== END 2025-05-30 12:03 | disposition home or self-care (01) ==
LOC: CHSLAB 12:03
PROVIDERS: PCP Family Medicine; Visit Provider Internal Medicine Endocrinology, Diabetes & Metabolism
DX: M85.80 Other specified disorders of bone density and structure, unspecified site (principal); Z78.0 Asymptomatic menopausal state; R79.89 Other specified abnormal findings of blood chemistry; E03.9 Hypothyroidism, unspecified
CPT/HCPCS: 36415; 82306; 84443